=== PATIENT | male | born 1985 | race Two or more races ===

== ENCOUNTER 2017-04-07 21:11 | Emergency (ER) | payer OTHER ==
[~2017-04-07] VITALS: Ht 177.8 cm; Wt 81.6 kg
[2017-04-07 21:20] VITALS: BP 138/87
[2017-04-07] MEDS ORDERED: FLUORESCEIN SOD 1 MG TEST STRIP RIGHTEYE ONE (23:30)
[2017-04-07] MEDS ORDERED: GENTAMICIN SULF 0.3% OPTH(EYE) OINT 3.5GM RIGHTEYE ONE (23:30)
[2017-04-07] MEDS ORDERED: GENTAMICIN OPTH sol 0.3% 5ml RIGHTEYE ONE (23:30)
[2017-04-07] MEDS ORDERED: TETRACAINE HCL 0.5% OPTH(EYE) SOLN 4ML RIGHTEYE ONE (23:30)
== END 2017-04-08 | disposition home or self-care (01) ==
LOC: ER 21:28
DX: H10.9 Unspecified conjunctivitis (principal); H57.8 Other specified disorders of eye and adnexa

== ENCOUNTER 2021-02-24 15:58 | Inpatient (IN) | payer MEDICAID, OTHER ==
[~2021-02-24] VITALS: Ht 177.8 cm; Wt 94.3 kg
[2021-02-24 16:32] LABS: Basophils # (auto) 0 10 ^3/uL (0-0.2); Basophils % (auto) 0.5 % (0.0-2.0); Eosinophils # (auto) 0.4 10 ^3/uL (0-0.8); Hematocrit 42.3 % (41.0-53.0); Hemoglobin 14.5 g/dL (13.5-17.5); Lymphocytes # (auto) 1.6 10 ^3/uL (0.4-5.4); Lymphocytes % (auto) 22.5 % (10.0-50.0); Mean Corpuscular Hemoglobin 28.9 pg (28.0-32.0); Mean Corpuscular Hgb Conc. 34.3 g/dL (32.0-36.0); Mean Corpuscular Volume 84.4 fL (80.0-100.0); Monocytes # (auto) 0.5 10 ^3/uL (0-1.3); Monocytes % (auto) 7.6 % (0.0-12.0); Neutrophils # (auto) 4.6 10 ^3/uL (1.6-8.6); Neutrophils % (auto) 64.4 % (37.0-80.0); Red Blood Cells 5.01 10^6/uL (4.5-5.90); Red Cell Distribution Width 14.7 % (11.8-14.3); White Blood Cell 7.1 10^3/uL (4.4-10.8)
[2021-02-24 16:46] LABS: Albumin 3.6 g/dL (3.4-5.0); Calcium 8.4 mg/dL (8.5-10.1); Potassium 3.6 mmol/L (3.5-5.1)
[2021-02-24 16:48] LABS: Bilirubin, Total 0.4 mg/dL (0.2-1.0); Total Protein 6.7 g/dL (6.4-8.2)
[2021-02-24 17:14] LABS: INR 0.95 (0.9-1.15); Partial Thromboplastin Time 28.7 sec (23.0-31.2)
[2021-02-24] MEDS ORDERED: ONDANSETRON HCL 4 MG/2 ML VIAL IV ONE (20:15)
[2021-02-24] MEDS ORDERED: MORPHINE SULFATE 4 MG/ML SYR/VIAL IV ONE (20:15)
[2021-02-24] MEDS ORDERED: SODIUM CHLORIDE 0.9% 1,000 ML IV ONE (21:30)
[2021-02-24] MEDS: SOD CHL 0.45% 1,000 ML IV SCH ×2 (22:15→23:50)
[2021-02-24] MEDS ORDERED: ACETAMINOPHEN 325 MG TAB PO PRN (22:15)
[2021-02-24] MEDS ORDERED: ONDANSETRON HCL 4 MG/2 ML VIAL IV PRN (22:15)
[2021-02-24] MEDS ORDERED: MORPHINE SULF INJ 2 MG/ML SYRINGE 1ML IV PRN (22:15)
[2021-02-24] MEDS ORDERED: NITROGLYCERIN 0.4 MG SL TAB SL PRN (22:15)
[2021-02-24] MEDS: MORPHINE SULFATE 4 MG/ML SYR/VIAL IV PRN (23:34)
[2021-02-25 00:59] VITALS: BP 120/75
[2021-02-25 05:02] VITALS: BP 115/66
[2021-02-25 05:59] LABS: Basophils # (auto) 0 10 ^3/uL (0-0.2); Basophils % (auto) 0.3 % (0.0-2.0); Eosinophils # (auto) 0.4 10 ^3/uL (0-0.8); Eosinophils % (auto) 6.3 % (0.0-7.0); Hematocrit 40.5 % (41.0-53.0); Hemoglobin 13.9 g/dL (13.5-17.5); Lymphocytes # (auto) 1.9 10 ^3/uL (0.4-5.4); Lymphocytes % (auto) 29.8 % (10.0-50.0); Mean Corpuscular Hemoglobin 29.4 pg (28.0-32.0); Mean Corpuscular Hgb Conc. 34.3 g/dL (32.0-36.0); Mean Corpuscular Volume 85.8 fL (80.0-100.0); Monocytes # (auto) 0.5 10 ^3/uL (0-1.3); Monocytes % (auto) 7.6 % (0.0-12.0); Neutrophils # (auto) 3.6 10 ^3/uL (1.6-8.6); Red Blood Cells 4.72 10^6/uL (4.5-5.90); Red Cell Distribution Width 14.6 % (11.8-14.3); White Blood Cell 6.4 10^3/uL (4.4-10.8)
[2021-02-25 06:14] LABS: Albumin 2.9 g/dL (3.4-5.0); Calcium 7.9 mg/dL (8.5-10.1); Potassium 3.7 mmol/L (3.5-5.1)
[2021-02-25 06:17] LABS: Bilirubin, Total 0.5 mg/dL (0.2-1.0); Total Protein 6.1 g/dL (6.4-8.2)
[2021-02-25 09:00] VITALS: BP 115/54
[2021-02-25] MEDS: MORPHINE SULFATE 4 MG/ML SYR/VIAL IV PRN ×3 (09:55→22:32)
[2021-02-25] MEDS: FAMOTIDINE (10MG/ML) 2ML VL IV SCH ×2 (09:55→22:30)
[2021-02-25 13:00] VITALS: BP 124/75
[2021-02-25] MEDS ORDERED: GOLYTELY 4L KIT PO ONE (15:45)
[2021-02-25 16:45] VITALS: BP 120/77
[2021-02-25] MEDS: SOD CHL 0.45% 1,000 ML IV SCH (18:41)
[2021-02-25 22:00] VITALS: BP 99/74
[2021-02-26 05:00] VITALS: BP 120/71
[2021-02-26] MEDS ORDERED: GOLYTELY 4L KIT PO ONE (06:00)
[2021-02-26] MEDS ORDERED: MAGNESIUM CITRATE SOLUTION 300 ML BTL PO ONE (06:00)
[2021-02-26] MEDS: FAMOTIDINE (10MG/ML) 2ML VL IV SCH (08:47)
[2021-02-26] MEDS: MORPHINE SULFATE 4 MG/ML SYR/VIAL IV PRN (08:48)
[2021-02-26 09:00] VITALS: BP 106/78
[2021-02-26 13:00] VITALS: BP 102/52
[2021-02-26] MEDS ORDERED: PROPOFOL 10 MG/ML 20 ML IV ONE ×2 (13:23→13:29)
[2021-02-26] MEDS ORDERED: MORPHINE SULFATE 4 MG/ML SYR/VIAL IV PRN (14:00)
[2021-02-26 17:00] VITALS: BP 121/69
== END 2021-02-26 17:05 | disposition left against medical advice (07) | DRG 254 ==
LOC: ER 15:58 → TELE 22:10 → TELE-CENTR 23:37
PROVIDERS: ADMIT Nurse Practitioner Family; ATTEND Nurse Practitioner Family
PROC: 0DBP8ZX Excision of Rectum, Via Natural or Artificial Opening Endoscopic, Diagnostic (ICD-10-PCS; 2021-02-26)
PROC: 0DBN8ZX Excision of Sigmoid Colon, Via Natural or Artificial Opening Endoscopic, Diagnostic (ICD-10-PCS; principal; 2021-02-26 13:13)
DX: K63.5 Polyp of colon (principal); K92.2 Gastrointestinal hemorrhage, unspecified; F17.210 Nicotine dependence, cigarettes, uncomplicated; K64.8 Other hemorrhoids; G40.909 Epilepsy, unspecified, not intractable, without status epilepticus; Z82.49 Family history of ischemic heart disease and other diseases of the circulatory system; Z20.822 Contact with and (suspected) exposure to COVID-19; Z79.899 Other long term (current) drug therapy
CPT/HCPCS: 36415; 71045; 74176; 80053; 85025; 85610; 85730; 86850; 86900; 86901; 87426; 96361; 96374; G0378; J2704; J3490

== ENCOUNTER 2024-03-22 18:45 | Inpatient (IN) | payer MEDICAID, OTHER ==
[~2024-03-22] VITALS: Ht 177.8 cm; Wt 98.5 kg
[2024-03-22 19:56] LABS: Basophils # (auto) 0 10 ^3/uL (0-0.2); Basophils % (auto) 0.5 % (0.0-2.0); Eosinophils # (auto) 0.2 10 ^3/uL (0-0.8); Eosinophils % (auto) 3.4 % (0.0-7.0); Hemoglobin 14.8 g/dL (13.5-17.5); Lymphocytes # (auto) 2.1 10 ^3/uL (0.4-5.4); Lymphocytes % (auto) 30.1 % (10.0-50.0); Mean Corpuscular Hemoglobin 29.5 pg (28.0-32.0); Mean Corpuscular Hgb Conc. 34.5 g/dL (32.0-36.0); Mean Corpuscular Volume 85.5 fL (80.0-100.0); Monocytes # (auto) 0.6 10 ^3/uL (0-1.3); Monocytes % (auto) 8.4 % (0.0-12.0); Neutrophils % (auto) 57.6 % (37.0-80.0); Nucleated Red Blood Cells % 0.1 %; Platelet Count (auto) 213 10^3/uL (140-450); Red Blood Cells 5.03 10^6/uL (4.5-5.90); Red Cell Distribution Width 14.4 % (11.8-14.3)
[2024-03-22 20:16] LABS: Alanine Aminotransferase 37 U/L (7-40); Albumin 4.4 g/dL (3.2-4.8); Alkaline Phosphatase 100 U/L (46-116); Anion Gap 5 (5-15); Aspartate Aminotransferase 17 U/L (13-40); Bilirubin, Total 0.4 mg/dL (0.2-1.0); Blood Urea Nitrogen 17 mg/dL (9-23); Calcium 9.6 mg/dL (8.7-10.4); Carbon Dioxide 26 mmol/L (20-30); Chloride 108 mmol/L (98-107); Glucose 119 mg/dL (74-106); Sodium 139 mmol/L (136-145); Total Protein 6.8 g/dL (5.7-8.2)
[2024-03-22 20:19] LABS: Urine Bacteria None Seen /hpf (None Seen)
[2024-03-22 20:36] LABS: Urine Blood Negative /uL (Negative); Urine Clarity Clear (Clear); Urine Color Light-Yellow (Yellow); Urine Protein, UAD Negative (Negative); Urine Specific Gravity 1.017 (1.001-1.035); Urine Urobilinogen Normal (Negative); Urine WBC <1 /hpf (0 - 3); Urine pH 5.5 (5.0-9.0)
[2024-03-23 00:10] VITALS: PULSE 61; RESP 18
[2024-03-23] MEDS: HYDROcodone-ACET 10/325MG TAB PO ONE (00:11)
[2024-03-23] MEDS ORDERED: ONDANSETRON HCL 4 MG/2 ML VIAL IV PRN (12:30)
[2024-03-23] MEDS ORDERED: ACETAMINOPHEN 325 MG TAB PO PRN (12:30)
[2024-03-23] MEDS ORDERED: DOCUSATE SOD 100 MG CAP PO PRN (12:30)
[2024-03-23 13:06] LABS: Basophils # (auto) 0 10 ^3/uL (0-0.2); Basophils % (auto) 0.3 % (0.0-2.0); Eosinophils # (auto) 0.2 10 ^3/uL (0-0.8); Eosinophils % (auto) 2.9 % (0.0-7.0); Hematocrit 44.5 % (41.0-53.0); Hemoglobin 15.5 g/dL (13.5-17.5); Lymphocytes % (auto) 31.5 % (10.0-50.0); Mean Corpuscular Hemoglobin 29.6 pg (28.0-32.0); Mean Corpuscular Hgb Conc. 34.9 g/dL (32.0-36.0); Mean Corpuscular Volume 84.9 fL (80.0-100.0); Monocytes # (auto) 0.5 10 ^3/uL (0-1.3); Monocytes % (auto) 8.4 % (0.0-12.0); Neutrophils # (auto) 3.6 10 ^3/uL (1.6-8.6); Neutrophils % (auto) 56.9 % (37.0-80.0); Nucleated Red Blood Cells % 0.2 %; Platelet Count (auto) 206 10^3/uL (140-450); Red Blood Cells 5.25 10^6/uL (4.5-5.90); Red Cell Distribution Width 14.3 % (11.8-14.3); White Blood Cell 6.3 10^3/uL (4.4-10.8)
[2024-03-23 13:22] LABS: Alanine Aminotransferase 40 U/L (7-40); Albumin 4.5 g/dL (3.2-4.8); Alkaline Phosphatase 95 U/L (46-116); Anion Gap 6 (5-15); Aspartate Aminotransferase 20 U/L (13-40); BUN/Creatinine Ratio 10.8 (10.0-20.0); Blood Urea Nitrogen 12 mg/dL (9-23); Calcium 10.1 mg/dL (8.7-10.4); Carbon Dioxide 29 mmol/L (20-30); Chloride 106 mmol/L (98-107); Glucose 92 mg/dL (74-106); Potassium 4.3 mmol/L (3.5-5.1); Sodium 141 mmol/L (136-145)
[2024-03-23 13:23] LABS: Bilirubin, Total 0.5 mg/dL (0.2-1.0); Total Protein 7.1 g/dL (5.7-8.2)
[2024-03-23] MEDS: HYDROcodone-ACET 10/325MG TAB PO PRN (13:42)
[2024-03-23] MEDS: PANTOPRAZOLE 40 MG/10 ML VIAL INJ IV SCH (13:43)
[2024-03-23] MEDS: SODIUM CHLOR 0.9% PF (SALINE LOCK) 10ML VIAL/SYR IV SCH (14:02)
[2024-03-23] MEDS: LACTULOSE 20Gm/30ML SOLN PO ONE (16:07)
[2024-03-23] MEDS: POLYETHYLENE GLYCOL 17 GM PWDR PO ONE (16:13)
[2024-03-23] MEDS: METOCLOPRAMIDE HCL 5MG/ml INJ 2ml VIAL IV ONE (16:13)
[2024-03-23 17:00] VITALS: RESP 18
[2024-03-23 17:13] VITALS: BP 106/58; PULSE 52; RESP 16; TEMP 97.4; O2SAT 96
[2024-03-23 20:00] VITALS: PULSE 82
[2024-03-23 21:00] VITALS: BP 118/72; PULSE 57; RESP 18; TEMP 98.2; O2SAT 97
[2024-03-23] MEDS: METOCLOPRAMIDE HCL 5MG/ml INJ 2ml VIAL IV SCH (21:53)
[2024-03-23] MEDS: LACTULOSE 20Gm/30ML SOLN PO SCH (21:53)
[2024-03-23] MEDS: HYDROcodone-ACET 5/325MG TAB PO PRN (22:02)
[2024-03-24] VITALS (8 sets, daily range): BP systolic 101–129; BP diastolic 70–80; PULSE 54–84; RESP 16–20; TEMP 97.5–98.7; O2SAT 96–100
[2024-03-24 06:19] LABS: Basophils # (auto) 0 10 ^3/uL (0-0.2); Basophils % (auto) 0.2 % (0.0-2.0); Eosinophils # (auto) 0.2 10 ^3/uL (0-0.8); Eosinophils % (auto) 3.2 % (0.0-7.0); Hematocrit 43.5 % (41.0-53.0); Lymphocytes # (auto) 1.6 10 ^3/uL (0.4-5.4); Lymphocytes % (auto) 28.3 % (10.0-50.0); Mean Corpuscular Hemoglobin 29.2 pg (28.0-32.0); Mean Corpuscular Hgb Conc. 34.5 g/dL (32.0-36.0); Mean Corpuscular Volume 84.8 fL (80.0-100.0); Monocytes # (auto) 0.5 10 ^3/uL (0-1.3); Monocytes % (auto) 8.6 % (0.0-12.0); Neutrophils # (auto) 3.4 10 ^3/uL (1.6-8.6); Neutrophils % (auto) 59.7 % (37.0-80.0); Platelet Count (auto) 195 10^3/uL (140-450); Red Blood Cells 5.13 10^6/uL (4.5-5.90); Red Cell Distribution Width 14.2 % (11.8-14.3); White Blood Cell 5.7 10^3/uL (4.4-10.8)
[2024-03-24 06:39] LABS: Alanine Aminotransferase 40 U/L (7-40); Albumin 3.9 g/dL (3.2-4.8); Alkaline Phosphatase 84 U/L (46-116); Anion Gap 6 (5-15); Aspartate Aminotransferase 19 U/L (13-40); BUN/Creatinine Ratio 8.3 (10.0-20.0); Bilirubin, Total 0.6 mg/dL (0.2-1.0); Blood Urea Nitrogen 10 mg/dL (9-23); Calcium 9.5 mg/dL (8.7-10.4); Carbon Dioxide 27 mmol/L (20-30); Chloride 108 mmol/L (98-107); Glucose 89 mg/dL (74-106); Potassium 4.1 mmol/L (3.5-5.1); Sodium 141 mmol/L (136-145); Total Protein 6.2 g/dL (5.7-8.2)
[2024-03-24] MEDS: POLYETHYLENE GLYCOL 17 GM PWDR PO SCH (09:06)
[2024-03-24] MEDS: GOLYTELY 4L KIT PO ONE ×2 (18:44→22:38)
[2024-03-25] VITALS (7 sets, daily range): BP systolic 111–124; BP diastolic 57–80; PULSE 60–94; RESP 12–20; TEMP 97.5–98.9; O2SAT 95–99
[2024-03-25] MEDS: GOLYTELY 4L KIT PO ONE (06:26)
[2024-03-25] MEDS: MAGNESIUM CITRATE SOLUTION 300 ML BTL PO ONE (06:27)
[2024-03-25 06:55] LABS: Basophils # (auto) 0 10 ^3/uL (0-0.2); Basophils % (auto) 0.2 % (0.0-2.0); Eosinophils # (auto) 0.2 10 ^3/uL (0-0.8); Eosinophils % (auto) 2.7 % (0.0-7.0); Hematocrit 41.3 % (41.0-53.0); Hemoglobin 14.1 g/dL (13.5-17.5); Lymphocytes # (auto) 1.8 10 ^3/uL (0.4-5.4); Lymphocytes % (auto) 25.3 % (10.0-50.0); Mean Corpuscular Hemoglobin 29.1 pg (28.0-32.0); Mean Corpuscular Hgb Conc. 34.1 g/dL (32.0-36.0); Mean Corpuscular Volume 85.3 fL (80.0-100.0); Monocytes # (auto) 0.6 10 ^3/uL (0-1.3); Monocytes % (auto) 8.1 % (0.0-12.0); Neutrophils # (auto) 4.5 10 ^3/uL (1.6-8.6); Neutrophils % (auto) 63.7 % (37.0-80.0); Platelet Count (auto) 191 10^3/uL (140-450); Red Blood Cells 4.84 10^6/uL (4.5-5.90); Red Cell Distribution Width 14.5 % (11.8-14.3)
[2024-03-25 07:41] LABS: Alanine Aminotransferase 32 U/L (7-40); Alkaline Phosphatase 79 U/L (46-116); Anion Gap 5 (5-15); Carbon Dioxide 31 mmol/L (20-30); Chloride 107 mmol/L (98-107); Glucose 84 mg/dL (74-106); Potassium 3.7 mmol/L (3.5-5.1); Sodium 143 mmol/L (136-145)
[2024-03-25 07:42] LABS: Albumin 3.8 g/dL (3.2-4.8); BUN/Creatinine Ratio 6.3 (10.0-20.0); Blood Urea Nitrogen 7 mg/dL (9-23)
[2024-03-25 07:43] LABS: Aspartate Aminotransferase 15 U/L (13-40)
[2024-03-25 07:44] LABS: Bilirubin, Total 0.7 mg/dL (0.2-1.0); Total Protein 5.9 g/dL (5.7-8.2)
[2024-03-25] MEDS ORDERED: fentaNYL CITRATE 100 MCG/2 ML VL ONE (13:54)
[2024-03-25] MEDS ORDERED: MIDAZOLAM HCL 2MG/2ML 2ml VIAL (1mg/ml) ONE (13:55)
[2024-03-25] MEDS: HYDROCORTISONE ACET 25 MG RECTAL SUPP PR ONE (14:15)
[2024-03-25] MEDS ORDERED: ONDANSETRON HCL 4 MG/2 ML VIAL ONE (14:38)
[2024-03-25] MEDS ORDERED: PROPOFOL 10 MG/ML 20 ML IV ONE (14:38)
[2024-03-26 01:00] VITALS: BP 119/77; PULSE 63; RESP 15; TEMP 98; O2SAT 97
[2024-03-26 05:00] VITALS: BP 118/77; PULSE 85; RESP 19; TEMP 97.8; O2SAT 98
[2024-03-26 06:06] LABS: Basophils # (auto) 0 10 ^3/uL (0-0.2); Basophils % (auto) 0.3 % (0.0-2.0); Eosinophils # (auto) 0.2 10 ^3/uL (0-0.8); Eosinophils % (auto) 2.8 % (0.0-7.0); Hematocrit 41.3 % (41.0-53.0); Hemoglobin 14.5 g/dL (13.5-17.5); Lymphocytes # (auto) 1.4 10 ^3/uL (0.4-5.4); Lymphocytes % (auto) 23.1 % (10.0-50.0); Mean Corpuscular Hemoglobin 29.8 pg (28.0-32.0); Mean Corpuscular Volume 85.2 fL (80.0-100.0); Monocytes # (auto) 0.4 10 ^3/uL (0-1.3); Monocytes % (auto) 6.9 % (0.0-12.0); Neutrophils # (auto) 4.1 10 ^3/uL (1.6-8.6); Neutrophils % (auto) 66.9 % (37.0-80.0); Platelet Count (auto) 193 10^3/uL (140-450); Red Blood Cells 4.85 10^6/uL (4.5-5.90); Red Cell Distribution Width 14.3 % (11.8-14.3); White Blood Cell 6.1 10^3/uL (4.4-10.8)
[2024-03-26 06:28] LABS: Alanine Aminotransferase 31 U/L (7-40); Albumin 4.1 g/dL (3.2-4.8); Alkaline Phosphatase 82 U/L (46-116); Anion Gap 6 (5-15); Aspartate Aminotransferase 16 U/L (13-40); BUN/Creatinine Ratio 9.5 (10.0-20.0); Blood Urea Nitrogen 11 mg/dL (9-23); Calcium 9.1 mg/dL (8.7-10.4); Carbon Dioxide 29 mmol/L (20-30); Chloride 106 mmol/L (98-107); Glucose 93 mg/dL (74-106); Potassium 3.9 mmol/L (3.5-5.1); Sodium 141 mmol/L (136-145)
[2024-03-26 06:29] LABS: Bilirubin, Total 0.6 mg/dL (0.2-1.0); Total Protein 6.4 g/dL (5.7-8.2)
[2024-03-26] MEDS: PANTOPRAZOLE 40 MG TAB PO ONE (06:48)
[2024-03-26 07:58] VITALS: BP 108/60; PULSE 63; RESP 16; TEMP 98.4; O2SAT 97
[2024-03-26] MEDS: HYDROCORTISONE ACET 25 MG RECTAL SUPP PR ONE (11:30)
[2024-03-26 11:56] VITALS: BP 118/76; PULSE 64; RESP 16; TEMP 97.9; O2SAT 96
[2024-03-26] MEDS ORDERED: DOCU-265 PO (13:12)
[2024-03-26] MEDS ORDERED: PANT40T PO (13:12)
[2024-03-26] MEDS ORDERED: ACET-1882 PO (13:12)
[2024-03-27] MEDS ORDERED: PANTOPRAZOLE 40 MG TAB PO SCH (06:00)
== END 2024-03-26 13:10 | disposition home or self-care (01) | DRG 254 ==
LOC: ER 18:45 → OVERFLOW 03-23 12:36 → EAST 03-23 16:55
PROVIDERS: ADMIT Internal Medicine Pulmonary Disease; ATTEND Internal Medicine Gastroenterology
PROC: 0DBP8ZX Excision of Rectum, Via Natural or Artificial Opening Endoscopic, Diagnostic (ICD-10-PCS; principal; 2024-03-25 13:49)
DX: K64.8 Other hemorrhoids (principal); E66.9 Obesity, unspecified; F17.210 Nicotine dependence, cigarettes, uncomplicated; K21.9 Gastro-esophageal reflux disease without esophagitis; K63.5 Polyp of colon; K59.00 Constipation, unspecified; I10 Essential (primary) hypertension; M51.36 Other intervertebral disc degeneration, lumbar region; K62.1 Rectal polyp; Z82.49 Family history of ischemic heart disease and other diseases of the circulatory system; Z87.19 Personal history of other diseases of the digestive system; Z68.31 Body mass index [BMI] 31.0-31.9, adult
CPT/HCPCS: 36415; 74018; 74176; 80053; 81001; 85025; G0378; J2250; J2405; J2470; J2704

== ENCOUNTER 2024-12-01 09:45 | Emergency (ER) | payer OTHER ==
[~2024-12-01] VITALS: Ht 177.8 cm; Wt 100.8 kg
[~2024-12-01 09:45] MED LIST: ACET-1882 PO; DOCU-265 PO; PANT40T PO
--- NOTE | 2024-12-01 10:02 | ECG ---
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
--- NOTE | 2024-12-01 10:24 | ED.PDOC ---
SOB-HPI HPI Comments 39-year-old male with a history of cervical disc disease and GI bleeding brought in by self complaining of shortness of breath, associated with multiple other complaints including brain fog, lightheadedness, intermittent abdominal pain, bloody stools, and fatigue. Patient reports undergoing multiple procedures for cervical spine pain for the past 7 months during which he states he has been put under anesthesia. He denies any vomiting, diarrhea, fever, cough, vision changes or focal weakness. He does admit to headache, intermittent abdominal pain for the last several months, associated with intermittent diarrhea and intermittent rectal bleeding. States he has been evaluated here for rectal bleeding in the past, underwent polypectomy, and has not had bleeding within the last several days. Does report right lower quadrant abdominal pain. Chief Complaint: Shortness of Breath Time Seen by MD: 10:00 Primary Care Provider: NONE Reviewed notes: Nurses Notes, Medications, Allergies Information Source: Patient Mode of Arrival: Ambulatory Severity: Moderate Past Medical History Past Medical History (Other): Cervical Disc Disease - on epidural spine injections previous GI bleed w/ polyp removal Surgical History (Other): ankle surgery Family History Family History: No family hx of Cancer, No family hx of DM, No family hx of Heart radha Social History Smoker: Cigarettes Alcohol: Denies ETOH Use Drugs: Denies Drug Use Lives In: Home All Other Systems: Reviewed and Negative (Comprehensive systems review obtained and negative except for what is stated in the HPI.) Physical Exam General Appearance: No Apparent Distress HEENT: Other (Pupils and face symmetric. Moist mucous membranes.) Neck: Full Range of Motion, Normal Inspection Respiratory: Lungs Clear, No Accessory Muscle Use, No Respiratory Distress, Normal Breath Sounds Cardiovascular: No Edema, No JVD, Regular Rate/Rhythm Breast Exam: Deferred Gastrointestinal: RLQ, Soft, Tenderness Genitalia: Deferred Pelvic: Deferred Rectal: Deferred Extremities: Normal inspection, Normal range of motion, Non-tender, No pedal edema Neurologic: Alert (Oriented x4), Normal Affect, Normal Mood, Other (Ambulatory without difficulty) Cerebellar Function: NOT DONE Reflexes: NOT DONE Skin: Dry, Normal Color, Warm Lymphatic: NOT DONE EKG EKG : Comments Sinus rhythm, rate 61, normal intervals, normal axis, possible old inferior infarct, incomplete right bundle-branch block, nonspecific T change Was a procedure done? Was a procedure done?: No Differential Dx Differential Diagnosis: Anxiety, Asthma, Bronchitis, CHF, COPD, Dysrhythmia, Hyponatremia, Myocardial infarction, Panic Attack, Pneumonia, Pulmonary Embolism, Sinusitis, URI, Other (Electrolyte imbalance, side effect of anesthesia, anemia, among others) X-Ray, Labs, Meds, VS Vital Signs Date Time Temp Pulse Resp B/P (MAP) Pulse Ox O2 Delivery O2 Flow Rate FiO2 12/01/24 12:19 12/01/24 12:07 97.9 70 18 145/72 (96) 70 97.9 12/01/24 11:18 61 12/01/24 10:05 16 96 Room Air* 0 21 12/01/24 10:01 61 12/01/24 10:00 97.8 66 16 128/85 (99) 96 97.8 Lab Test 12/01/24 11:01 12/01/24 10:55 12/01/24 10:04 Range/Units Urine Color Light-yellow Yellow Urine Clarity Clear Clear Urine pH 6.5 5.0-9.0 Urine Specific [place] 1.018 1.001-1.035 Urine Protein Negative Negative Urine Ketones Negative Negative Urine Blood Negative Negative /uL Urine Nitrite Negative Negative Urine Bilirubin Negative Negative Urine Urobilinogen Normal Negative mg/dL Urine Leukocyte Esterase Negative Negative /uL Urine RBC <1 0 - 3 /hpf Urine Microscopic WBC < 1 0-3 /HPF Urine Squamous Epithelial Cells None seen <5 /hpf Urine Bacteria None seen None Seen /hpf Urine Glucose Normal Normal mg/dL Urine Opiates Screen Neg NEGATIVE Urine Fentanyl Screen Neg NEGATIVE Urine Barbiturates Screen Neg NEGATIVE Urine Phencyclidine Screen Neg NEGATIVE Urine Amphetamines Screen Neg NEGATIVE Urine Benzodiazepines Screen Neg NEGATIVE Urine Cocaine Screen Neg NEGATIVE Urine Cannabinoids Screen Neg NEGATIVE Troponin I High Sensitivity 4 4 </=54 ng/L White Blood Count 5.6 4.4-10.8 10^3/uL Red Blood Count 5.28 4.5-5.90 10^6/uL Hemoglobin 14.7 13.5-17.5 g/dL Hematocrit 43.6 41.0-53.0 % Mean Corpuscular Volume 82.6 80.0-100.0 fL Mean Corpuscular Hemoglobin 27.9 L 28.0-32.0 pg Mean Corpuscular Hemoglobin Concent 33.7 32.0-36.0 g/dL Red Cell Distribution Width 14.5 H 11.8-14.3 % Platelet Count 234 140-450 10^3/uL Mean Platelet Volume 9.2 6.9-10.8 fL Neutrophils (%) (Auto) 60.9 37.0-80.0 % Lymphocytes (%) (Auto) 28.0 10.0-50.0 % Monocytes (%) (Auto) 7.5 0.0-12.0 % Eosinophils (%) (Auto) 3.2 0.0-7.0 % Basophils (%) (Auto) 0.4 0.0-2.0 % Neutrophils # (Auto) 3.4 1.6-8.6 10 ^3/uL Lymphocytes # (Auto) 1.6 0.4-5.4 10 ^3/uL Monocytes # (Auto) 0.4 0-1.3 10 ^3/uL Eosinophils # (Auto) 0.2 0-0.8 10 ^3/uL Basophils # (Auto) 0 0-0.2 10 ^3/uL Nucleated Red Blood Cells 0.1 % D-Dimer, Quantitative < 0.19 0.0-0.49 mg/L FEU Sodium Level 140 136-145 mmol/L Potassium Level 3.9 3.5-5.1 mmol/L Chloride Level 104 98-107 mmol/L Carbon Dioxide Level 29 20-31 mmol/L Anion Gap 7 5-15 Blood Urea Nitrogen 15 9-23 mg/dL Creatinine 1.05 0.700-1.30 mg/dL Glomerular Filtration Rate Calc 91 >90 mL/min BUN/Creatinine Ratio 14.3 10.0-20.0 Serum Glucose 94 74-106 mg/dL Calcium Level 9.7 8.7-10.4 mg/dL Total Bilirubin 0.5 0.2-1.0 mg/dL Aspartate Amino Transferase (AST) 22 13-40 U/L Alanine Aminotransferase (ALT) 41 H 7-40 U/L Alkaline Phosphatase 91 46-116 U/L B-Type Natriuretic Peptide 25.55 0-100 pg/mL Total Protein 6.9 5.7-8.2 g/dL Albumin 4.5 3.2-4.8 g/dL [facility] [id number] [place] [id number] Ph: [phone] DIAGNOSTIC IMAGING Diagnostic Imaging Report : [id number] Signed PATIENT: NII PRETTY ACCT: [id number] UNIT: [id number] : 1985 LOC: ER ROOM / BED: / AGE / SEX: 39 / M ADM STATUS: REG ER SERVICE 1033 ORDERING PHYSICIAN: CATALINO FRANKEL MD PROCEDURE(s): CXRP - CHEST PORTABLE REASON: sob ORDER NUMBER(s): [id number], ACCESSION NUMBER(s): [id number] EXAM: XY CHEST PORTABLE Indication: sob Technique: Single frontal view of the chest was obtained Comparison: CHEST PORTABLE on DOS: 02/26/21 FINDINGS: Lines and Tubes: None Lungs: No focal consolidation. Pleura: No effusion. No pneumothorax. Cardiomediastinal contours: Unremarkable Bones: No acute osseous abnormality. IMPRESSION: No acute cardiopulmonary disease. ATED BY: JERO GEORGES MD DICTATED DATE/TIME: 12/01/24 105 SIGNED BY: JERO GEORGES MD SIGNED DATE/TIME: 12/01/24 105 CC: [place] [id number] Ph: [phone] DIAGNOSTIC IMAGING Diagnostic Imaging Report : [id number] Signed PATIENT: NII PRETTY ACCT: [id number] UNIT: [id number] : 1985 LOC: ER ROOM / BED: / AGE / SEX: 39 / M ADM STATUS: REG ER SERVICE 1034 ORDERING PHYSICIAN: CATALINO FRANKEL MD PROCEDURE(s): ABPL - CT AB PEL WO CON-NO ORAL OR IV REASON: abd pain, blood in stool, diarrhea ORDER NUMBER(s): [id number], ACCESSION NUMBER(s): [id number] CT ABDOMEN AND PELVIS WITHOUT CONTRAST CLINICAL HISTORY: abd pain, blood in stool, diarrhea TECHNIQUE: Multiple contiguous axial images of the abdomen and pelvis without intravenous contrast. The images were reformatted degenerate coronal and sag ittal reconstructions. All CT scans at this medical facility are performed using dose modulation techniques as appropriate to a performed exam including the following:Automated exposure control was utilized; adjustment of the MA and/or KV according to pat ient size; and use of iterative reconstruction technique. Radiation Dose Information: CT Dose: CTDI volume is 19 mGy. Dose-length product is 1307 mGy*cm Comparison: CT CT AB PEL WO CON-NO ORAL OR IV on DOS: 03/22/24, CT ABD PELVIS WO CONTRAST on DOS: 02/24/21 FINDINGS: Evaluation of the abdomen and pelvis is limited without intravenous contrast. The liver, gallbladder, pancreas, kidneys, adrenal glands, and spleen appear within normal limits. There is no gross evidence of abdominal lymphadenopathy. There is no free fluid or free air. The stomach grossly appears unremarkable. The small and large bowel loops demonstrate normal caliber and distribution. A normal appearing appendix is seen in the right lower quadrant abdomen. There are scattered diverticula in the distal colon without evidence of acute diverticulitis. The abdominal aorta and IVC appear within normal limits. The bladder appears unremarkable for the degree of distention. Pelvic organ appears within normal limits. There is no gross evidence of a pelvic mass. There is no free fluid collection. Lung bases are clear. There is no acute osseous abnormality. IMPRESSION: 1. There is no acute process in the abdomen and pelvis. 2. Scattered diverticula in the distal colon without evidence of acute diverticulitis. HS:Y ATED BY: MATTHEW FAJARDO MD DICTATED DATE/TIME: 12/01/24 112 SIGNED BY: MATTHEW FAJARDO MD SIGNED DATE/TIME: 12/01/24 112 CC: X-Ray, Labs, Meds, VS Comment 39-year-old male with a history of cervical spine disease and previous GI bleeding complaining of shortness of breath associated with multiple other complaints Vitals normal Exam unremarkable Rhythm strip independently interpreted by me: Rhythm, rate 61, no ectopy. Chest x-ray remarkable CT abdomen and pelvis IMPRESSION: 1. There is no acute process in the abdomen and pelvis. 2. Scattered diverticula in the distal colon without evidence of acute div erticulitis. CBC, CMP, BNP, troponin, D-dimer, UA, urine drug screen all unremarkable for any abnormality of acute significance Patient treated with the following in the ED: 1 L 0.9 normal saline IV bolus, Toradol 30 mg IV for back pain, Pepcid 20 mg IV On re-evaluation, exam is unchanged, patient states he feels better. Workup is unremarkable. Perhaps patient's symptoms are due to side effects of anesthesia. Patient appears stable for discharge with close outpatient follow-up with his primary physician. Patient requested a prescription for an inhaler, as he states the shortness of breath is possibly due to asthma like symptoms. He states he was a heavy marijuana smoker in the past. I will prescribe albuterol and Protonix. Time of 1ST Reevaluation: 10:30 Reevaluation 1ST: Unchanged Patient Education/Counseling: Diagnosis, Treatment, Need For Follow Up Family Education/Counseling: No Family Present Departure 1 Departure Time of Disposition: 12:17 Impression: Primary Impression: Shortness of breath Additional Impression: Medication side effects Disposition: HOME / SELF CARE / HOMELESS Condition: Stable Additional Instructions: Your blood and urine tests, including screening tests for heart attack, heart failure and blood clots in your lungs, were essentially normal. Your chest x- ray was normal. Your CT scan did not show any acute finding. You do have diverticular disease, which may be the cause of the blood in your stool. This does not require any acute treatment at this time. I have prescribed an acid housekeeping/laundry that may help with the bleeding. Your other symptoms may be due to side effects of the anesthesia. There is no way to test for this. Follow-up with your primary doctor in 1-2 days. e-Prescriptions Albuterol Sulfate (Albuterol Sulfate Hfa) 108 Mcg/Act Aer 1 PUFF IN Q6HP PRN, #1 AER Prov: CATALINO FRANKEL MD 12/01/24 Pantoprazole Sodium Sesquihydr (Pantoprazole Sodium) 40 Mg Tab 40 MG PO DAILY@0600 for 30 Days, #30 TAB Prov: CATALINO FRANKEL MD 12/01/24 Discharged With: Self Critical Care Note Critical Care Time?: No Stability Stability form required: No Heart Score Heart Score: Heart Score Response (Comments) Value History Slightly Suspicious 0 EKG Repolarization Disturb 1 Age <45 0 Risk Factors No known risk factors 0 Troponin Normal limit 0 Total 1 I personally scribed for CATALINO FRANKEL MD ([email or web address]) on 12/01/24 at 10:24. Electronically submitted by Nick Hough ([email or web address]). I personally scribed for CATALINO FRANKEL MD ([email or web address]) on 12/01/24 at 11:18. Electronically submitted by Nick Hough ([email or web address]). I personally scribed for CATALINO FRANKEL MD ([email or web address]) on 12/01/24 at 11:46. Electronically submitted by Nick Hough ([email or web address]). CATALINO FRANKEL MD December 01, 2024 10:24
--- NOTE | 2024-12-01 11:02 | DVH ---
EXAM: XY CHEST PORTABLE Indication: sob Technique: Single frontal view of the chest was obtained Comparison: CHEST PORTABLE on DOS: 02/26/21 FINDINGS: Lines and Tubes: None Lungs: No focal consolidation. Pleura: No effusion. No pneumothorax. Cardiomediastinal contours: Unremarkable Bones: No acute osseous abnormality. IMPRESSION: No acute cardiopulmonary disease.
[2024-12-01 11:03] LABS: Urine Bacteria None Seen /hpf (None Seen)
[2024-12-01 11:07] LABS: Basophils # (auto) 0 10 ^3/uL (0-0.2); Basophils % (auto) 0.4 % (0.0-2.0); Eosinophils # (auto) 0.2 10 ^3/uL (0-0.8); Eosinophils % (auto) 3.2 % (0.0-7.0); Hematocrit 43.6 % (41.0-53.0); Hemoglobin 14.7 g/dL (13.5-17.5); Lymphocytes # (auto) 1.6 10 ^3/uL (0.4-5.4); Mean Corpuscular Hemoglobin 27.9 pg (28.0-32.0); Mean Corpuscular Hgb Conc. 33.7 g/dL (32.0-36.0); Mean Corpuscular Volume 82.6 fL (80.0-100.0); Monocytes # (auto) 0.4 10 ^3/uL (0-1.3); Monocytes % (auto) 7.5 % (0.0-12.0); Neutrophils # (auto) 3.4 10 ^3/uL (1.6-8.6); Neutrophils % (auto) 60.9 % (37.0-80.0); Nucleated Red Blood Cells % 0.1 %; Platelet Count (auto) 234 10^3/uL (140-450); Red Blood Cells 5.28 10^6/uL (4.5-5.90); Red Cell Distribution Width 14.5 % (11.8-14.3); White Blood Cell 5.6 10^3/uL (4.4-10.8)
[2024-12-01 11:09] LABS: Albumin 4.5 g/dL (3.2-4.8); Alkaline Phosphatase 91 U/L (46-116); Anion Gap 7 (5-15); Aspartate Aminotransferase 22 U/L (13-40); BUN/Creatinine Ratio 14.3 (10.0-20.0); Blood Urea Nitrogen 15 mg/dL (9-23); Calcium 9.7 mg/dL (8.7-10.4); Carbon Dioxide 29 mmol/L (20-31); Chloride 104 mmol/L (98-107); Glucose 94 mg/dL (74-106); Potassium 3.9 mmol/L (3.5-5.1); Sodium 140 mmol/L (136-145); Total Protein 6.9 g/dL (5.7-8.2)
[2024-12-01 11:10] LABS: Bilirubin, Total 0.5 mg/dL (0.2-1.0)
[2024-12-01 11:14] LABS: Alanine Aminotransferase 41 U/L (7-40)
--- NOTE | 2024-12-01 11:26 | DVH ---
CT ABDOMEN AND PELVIS WITHOUT CONTRAST CLINICAL HISTORY: abd pain, blood in stool, diarrhea TECHNIQUE: Multiple contiguous axial images of the abdomen and pelvis without intravenous contrast. T he images were reformatted degenerate coronal and sagittal reconstructions. All CT scans at this medical facility are performed using dose modulation techniques as appropriate t o a performed exam including the following:Automated exposure control was utilized; adjustment of the MA and/or KV according to patient size; and use of iterative reconstruction technique. Radiation Dose Information: CT Dose: CTDI volume is 19 mGy. Dose-length product is 1307 mGy*cm Comparison: CT CT AB PEL WO CON-NO ORAL OR IV on DOS: 03/22/24, CT ABD PELVIS WO CONTRAST on DOS: 02/24 FINDINGS: Evaluation of the abdomen and pelvis is limited without intravenous contrast. The liver, gallbladder, pancreas, kidneys, adrenal glands, and spleen appear within normal limits. There is no gross evidence of abdominal lymphadenopathy. There is no free fluid or free air. The stomach grossly appears unremarkable. The small and large bowel loops demonstrate normal caliber and distribution. A normal appearing appendix is seen in the right lower quadrant abdomen. There are scattered diverticula in the distal colon without evidence of acute diverticulitis. The abdominal aorta and IVC appear within normal limits. The bladder appears unremarkable for the degree of distention. Pelvic organ appears within normal [place] its. There is no gross evidence of a pelvic mass. There is no free fluid collection. Lung bases are clear. There is no acute osseous abnormality. IMPRESSION: 1. There is no acute process in the abdomen and pelvis. 2. Scattered diverticula in the distal colon without evidence of acute diverticulitis. HS:Y
[2024-12-01 11:28] LABS: Urine Blood Negative /uL (Negative); Urine Clarity Clear (Clear); Urine Color Light-Yellow (Yellow); Urine Protein, UAD Negative (Negative); Urine Specific Gravity 1.018 (1.001-1.035); Urine Squamous Epithelial Cell None Seen /hpf (<5); Urine Urobilinogen Normal (Negative); Urine WBC < 1 /HPF (0-3); Urine pH 6.5 (5.0-9.0)
[2024-12-01 11:43] LABS: Amphetamine Screen, Urine Neg (NEGATIVE); Barbiturate Scree,Urine Neg (NEGATIVE); Benzodiazephine Screen, Urine Neg (NEGATIVE); Cannabinoid Screen, Urine Neg (NEGATIVE); Cocaine Screen, Urine Neg (NEGATIVE); Opiate Scree,Urine Neg (NEGATIVE); Phencyclidine Screen, Urine Neg (NEGATIVE)
[2024-12-01 12:07] VITALS: BP 145/72; RESP 18; TEMP 97.9; O2SAT 70
[2024-12-01] MEDS: SODIUM CHLORIDE 0.9% 1,000 ML IV ONE (12:15)
[2024-12-01] MEDS ORDERED: PANT40T PO (12:19)
[2024-12-01] MEDS ORDERED: ALBU108A5 IN (13:04)
[2024-12-01] MEDS: FAMOTIDINE (10MG/ML) 2ML VL IV ONE (13:26)
[2024-12-01] MEDS: KETOROLAC TROMETH 30 MG/ML 1ML VIAL IV ONE (13:27)
== END 2024-12-01 13:50 | disposition home or self-care (01) ==
LOC: ER 09:45
DX: R06.02 Shortness of breath (principal); T50.905A Adverse effect of unspecified drugs, medicaments and biological substances, initial encounter; F17.210 Nicotine dependence, cigarettes, uncomplicated; Z98.890 Other specified postprocedural states; Y92.89 Other specified places as the place of occurrence of the external cause
CPT/HCPCS: 36415; 71045; 74176; 80053; 80307; 81001; 83880; 84484; 85025; 85379; 93005; 96361; 96374; 96375; 99285; J1885; J3490; J7030

== ENCOUNTER 2025-01-17 05:20 | Inpatient (IN) | payer OTHER ==
[~2025-01-17] VITALS: Ht 185.4 cm; Wt 106.0 kg
[~2025-01-17 05:20] MED LIST changes: +ALBU108A5 IN
--- NOTE | 2025-01-17 05:36 | PRN ---
Misceleneous Note Note Note RAPID MEDICAL ASSESSMENT NOTE: 39-year-old male presents via EMS with syncopal episode and back pain. Physical exam: General: Awake, alert and oriented. No acute distress. Skin: Skin in warm, dry and intact without rashes or lesions. HEENT: The head is normocephalic and atraumatic. Conjunctivae are clear without exudates or hemorrhage. Sclera is non-icteric. Respiratory: No signs of respiratory distress. No Stridor. Neurological: The patient is awake, alert and oriented to person, place, and time with normal speech. Speech is clear. There is no facial asymmetry. Plan: Sign out to oncoming provider pending full evaluation and re-assessment. EVELIN RIZZO MD Jan 17, 2025 05:36
[2025-01-17] MEDS: SODIUM CHLORIDE 0.9% 1,000 ML IV ONE (05:45)
--- NOTE | 2025-01-17 05:53 | ECG ---
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
[2025-01-17 05:59] LABS: Basophils # (auto) 0 10 ^3/uL (0-0.2); Basophils % (auto) 0.2 % (0.0-2.0); Eosinophils # (auto) 0.1 10 ^3/uL (0-0.8); Eosinophils % (auto) 1.1 % (0.0-7.0); Hematocrit 45.7 % (41.0-53.0); Hemoglobin 15.3 g/dL (13.5-17.5); Mean Corpuscular Hgb Conc. 33.6 g/dL (32.0-36.0); Mean Corpuscular Volume 83.2 fL (80.0-100.0); Monocytes # (auto) 0.9 10 ^3/uL (0-1.3); Monocytes % (auto) 8.3 % (0.0-12.0); Neutrophils # (auto) 6.4 10 ^3/uL (1.6-8.6); Neutrophils % (auto) 61.4 % (37.0-80.0); Nucleated Red Blood Cells % 0.1 %; Platelet Count (auto) 223 10^3/uL (140-450); Red Blood Cells 5.49 10^6/uL (4.5-5.90); Red Cell Distribution Width 15.2 % (11.8-14.3); White Blood Cell 10.5 10^3/uL (4.4-10.8)
[2025-01-17 06:00] VITALS: PULSE 74; RESP 16; O2SAT 95
--- NOTE | 2025-01-17 06:15 | DVH ---
CHEST RADIOGRAPH Indication: Syncope Technique: Single frontal view of the chest was obtained COMPARISON: XY CHEST PORTABLE on DOS: 12/01/24, CHEST PORTABLE on DOS: 02/26/21 FINDINGS: Lines and Tubes: None Lungs: Clear Pleura: No effusion. No pneumothorax. Cardiomediastinal contours: Unremarkable Bones: Unremarkable IMPRESSION: 1. No acute disease.
[2025-01-17 06:19] LABS: Albumin 4.5 g/dL (3.2-4.8); Alkaline Phosphatase 93 U/L (46-116); Anion Gap 12 (5-15); Aspartate Aminotransferase 20 U/L (<34); BUN/Creatinine Ratio 13.8 (10.0-20.0); Blood Urea Nitrogen 19 mg/dL (9-23); Calcium 9.1 mg/dL (8.7-10.4); Carbon Dioxide 26 mmol/L (20-31); Chloride 105 mmol/L (98-107); Potassium 4.5 mmol/L (3.5-5.1); Sodium 143 mmol/L (136-145); Total Protein 6.7 g/dL (5.7-8.2)
[2025-01-17 06:20] LABS: Bilirubin, Total 0.4 mg/dL (0.2-1.0)
--- NOTE | 2025-01-17 06:20 | ED.PDOC ---
HPI (NEURO) HPI Comments 39 year old male presents to the ED via EMS with a chief complaint of syncope onset today (01/17/25). Patient states he had a back stimulator procedure at [place], [place], was discharged home. This morning, patient woke up, went to the bathroom, was found on the floor, unresponsive. Upon EMS arrival, patient experiencing 2 witnessed syncope episodes, witnessed, had positive ortho stats. Denies chest pain, shortness of breath, nausea, vomiting, diarrhea. No other symptoms or modifying factors present at this time. Chief Complaint: Syncope Time Seen by MD: 06:10 Primary Care Provider: NONE Reviewed Notes: Medications, Allergies Information Source: Patient, Emergency Med Personnel Mode of Arrival: EMS Severity: Moderate Timing: Hours Duration: Since onset Prehospital treatment: None Onset: At rest Circumstances: Spontaneous Symptoms: Syncope Before: Normal Modifying factors: Nothing Past Medical History PAST MEDICAL HISTORY: Denies Surgical History (Other): back stimulator procedure Family History Family History: No family hx of Cancer, No family hx of DM, No family hx of Heart radha Social History Smoker: Cigarettes Alcohol: Denies ETOH Use Drugs: Denies Drug Use Lives In: Home Constitutional: denies: chills, diaphoresis, fatigue, fever, malaise, sweats, weakness, others EENTM: denies: blurred vision, double vision, ear bleeding, ear discharge, ear drainage, ear pain, ear ringing, eye pain, eye redness, hearing loss, mouth pain, mouth swelling, nasal discharge, nose bleeding, nose congestion, nose pain, photophobia, tearing, throat pain, throat swelling, voice changes, others Respiratory: denies: cough, hemoptysis, orthopnea, SOB at rest, shortness of breath, SOB with excertion, stridor, wheezing, others Cardiovascular: denies: chest pain, dizzy spells, diaphoresis, Dyspnea on exertion, edema, irregular heart beat, left arm pain, lightheadedness, palpitations, PND, syncope, others Gastrointestinal: denies: abdomen distended, abdominal pain, blood streaked bowels, constipated, diarrhea, dysphagia, difficulty swallowing, hematemesis, melena, nausea, poor appetite, poor fluid intake, rectal bleeding, rectal pain, vomiting, others Genitourinary: denies: burning, dysuria, flank pain, frequency, hematuria, incontinence, penile discharge, penile sore, pain, testicle pain, testicle swelling, urgency, others Neurological: reports: others (syncope); denies: dizziness, fainting, headache, left sided numbness, left sided weakness, numbness, paresthesia, pre-existing deficit, right sided numbness, right sided weakness, seizure, speech problems, tingling, tremors, weakness Musculoskeletal: reports: back pain; denies: gout, joint pain, joint swelling, muscle pain, muscle stiffness, neck pain, others Integumetry: denies: bruises, change in color, change in hair/nails, dryness, laceration, lesions, lumps, rash, wounds, others Allergic/Immunocompromised: denies: Difficulty Healing, Frequent Infections, Hives, Itching, others Hematologic/Lymphatic: denies: anemia, blood clots, easy bleeding, easy bruising, swollen glands, others Endocrine: denies: excessive hunger, excessive sweating, excessive thirst, excessive urination, flushing, intolerance to cold, intolerance to heat, u nexplained weight gain, unexplained weight loss, others Psychiatric: denies: anxiety, bipolar disorder, depression, hopeless, panic disorder, schizophrenia, sleepless, suicidal, others All Other Systems: Reviewed and Negative Physical Exam General Appearance: Normal HEENT: Normal ENT Inspection, Pharynx Normal, TMs Normal, Other (no tongue laceration noted) Neck: Full Range of Motion, Non-Tender, Normal, Normal Inspection Respiratory: Chest Non-Tender, Lungs Clear, No Accessory Muscle Use, No Respiratory Distress, Normal Breath Sounds Cardiovascular: No Edema, No JVD, No Murmur, No Gallop, Normal Peripheral Pulses, Regular Rate/Rhythm Breast Exam: Deferred Gastrointestinal: No Organomegaly, Non Tender, No Pulsatile Mass, Normal Bowel Sounds, Soft Genitalia: Deferred Pelvic: Deferred Rectal: Deferred Extremities: No calf tenderness, Normal capillary refill, Normal inspection, Normal range of motion, Non-tender, No pedal edema Musculoskeletal : Apperance: Normal Neurologic: Alert, saw feeder II-XII nml as Tested, No Motor Deficits, Normal Affect, Normal Mood, No Sensory Deficits Cerebellar Function: Normal Reflexes: Normal Skin: Dry, Normal Color, Warm Lymphatic: No Adenopathy Was a procedure done? Was a procedure done?: No Differential Diagnosis (SZ) Seizure: N/A CVA: Other General Weakness: Anemia, CVA, Dehydration, Dysrhythmia, Electrolyte imbalance, Hypoglycemia, Hypotension, Hypovolemia, Myocardial infarction Headache: N/A X-Ray, Labs, Meds, VS Vital Signs Date Time Temp Pulse Resp B/P (MAP) Pulse Ox O2 Delivery O2 Flow Rate FiO2 01/17/25 06:20 59 01/17/25 05:25 57 01/17/25 05:25 97.9 56 20 102/60 (74) 98 97.9 Lab Test 01/17/25 06:47 01/17/25 05:52 Range/Units Troponin I High Sensitivity Pending 4 </=54 ng/L White Blood Count 10.5 4.4-10.8 10^3/uL Red Blood Count 5.49 4.5-5.90 10^6/uL Hemoglobin 15.3 13.5-17.5 g/dL Hematocrit 45.7 41.0-53.0 % Mean Corpuscular Volume 83.2 80.0-100.0 fL Mean Corpuscular Hemoglobin 28.0 28.0-32.0 pg Mean Corpuscular Hemoglobin Concent 33.6 32.0-36.0 g/dL Red Cell Distribution Width 15.2 H 11.8-14.3 % Platelet Count 223 140-450 10^3/uL Mean Platelet Volume 8.2 6.9-10.8 fL Neutrophils (%) (Auto) 61.4 37.0-80.0 % Lymphocytes (%) (Auto) 29.0 10.0-50.0 % Monocytes (%) (Auto) 8.3 0.0-12.0 % Eosinophils (%) (Auto) 1.1 0.0-7.0 % Basophils (%) (Auto) 0.2 0.0-2.0 % Neutrophils # (Auto) 6.4 1.6-8.6 10 ^3/uL Lymphocytes # (Auto) 3.0 0.4-5.4 10 ^3/uL Monocytes # (Auto) 0.9 0-1.3 10 ^3/uL Eosinophils # (Auto) 0.1 0-0.8 10 ^3/uL Basophils # (Auto) 0 0-0.2 10 ^3/uL Nucleated Red Blood Cells 0.1 % Sodium Level 143 136-145 mmol/L Potassium Level 4.5 3.5-5.1 mmol/L Chloride Level 105 98-107 mmol/L Carbon Dioxide Level 26 20-31 mmol/L Anion Gap 12 5-15 Blood Urea Nitrogen 19 9-23 mg/dL Creatinine 1.38 H 0.700-1.30 mg/dL Glomerular Filtration Rate Calc 66 >90 mL/min BUN/Creatinine Ratio 13.8 10.0-20.0 Serum Glucose 111 H 74-106 mg/dL Calcium Level 9.1 8.7-10.4 mg/dL Total Bilirubin 0.4 0.2-1.0 mg/dL Aspartate Amino Transferase (AST) 20 <34 U/L Alanine Aminotransferase (ALT) 50 H 7-40 U/L Alkaline Phosphatase 93 46-116 U/L B-Type Natriuretic Peptide 12.90 0-100 pg/mL Total Protein 6.7 5.7-8.2 g/dL Albumin 4.5 3.2-4.8 g/dL Current Medications Medications (Trade) Dose Ordered Sig/Ti Route Start Time Stop Time Status Last Admin Sodium Chloride 1,000 ml @ 1,000 mls/hr Q1H ONCE IV 01/17/25 05:45 01/17/25 06:44 DC 01/17/25 05:45 Acetaminophen/ Hydrocodone Bitart ([place] 5/325MG Tab) 1 tab ONCE ONCE PO 01/17/25 06:45 01/17/25 06:46 DC 01/17/25 06:55 [place] [id number] Ph: [phone] DIAGNOSTIC IMAGING Diagnostic Imaging Report : [id number] Signed PATIENT: NII PRETTY ACCT: [id number] UNIT: [id number] : 1985 LOC: ER ROOM / BED: / AGE / SEX: 39 / M ADM STATUS: REG ER SERVICE [id number] ORDERING PHYSICIAN: EVELIN RIZZO MD PROCEDURE(s): CXR1 - CHEST XRAY 1 VIEW REASON: Syncope ORDER NUMBER(s): [id number], ACCESSION NUMBER(s): [id number] CHEST RADIOGRAPH Indication: Syncope Technique: Single frontal view of the chest was obtained COMPARISON: XY CHEST PORTABLE on DOS: 12/01/24, CHEST PORTABLE on DOS: 02/26/21 FINDINGS: Lines and Tubes: None Lungs: Clear Pleura: No effusion. No pneumothorax. Cardiomediastinal contours: Unremarkable Bones: Unremarkable IMPRESSION: 1. No acute disease. ATED BY: AMANUEL TALLEY MD DICTATED DATE/TIME: 01/17/25612 SIGNED BY: AMANUEL TALLEY MD SIGNED DATE/TIME: 01/17/25612 CC: Time of 1ST Reevaluation: 06:40 Reevaluation 1ST: Unchanged Patient Education/Counseling: Diagnosis, Treatment, Prognosis Family Education/Counseling: No Family Present Comments pt reportedly was found down in bathroom. he was hypotensive on presentation. this followed a sine stimulator placement in [place]. pt remained relatively hypotensive but responded to ivf bolus. he continues to feel very weak. pt will be admitted for syncope Additional Information The following tests were ordered, and results were reviewed by me: BNP, TROP-x3, CMP, CBC, XY CHEST Additional Information was gathered from interviewing the following independent historians: EMS I reviewed and agreed with the following test results read by other providers: XY CHEST I discussed treatment and results with medical personnel and: patient Comprehensive systems review obtained and negative except for what is stated in the HPI. Departure 1 Departure Time of Disposition: 07:00 Impression: Primary Impression: Syncope Disposition: ADMITTED INPATIENT Admit to: Tele Condition: Stable Discharged With: Self Critical Care Note Critical Care Time?: Yes (35 min-critical care time only) Critical care comment: Due to concerns for patients condition deteriorating, the care required my highest level of attention and readiness to intervene. I assessed the patient, reviewed the medical records, ordered the appropriate tests and treatments, then reassessed for results and responsiveness. I communicated with medical personnel and consultants and formulated a plan of care. Total critical care time excludes any procedures Stability Stability form required: No I personally scribed for ENID MATSON MD ([email or web address]) on 01/17/25 at 06:20. Electronically submitted by Judy Chua ([email or web address]). I personally scribed for ENID MATSON MD ([email or web address]) on 01/17/25 at 06:35. Electronically submitted by Judy Chua ([email or web address]). I personally scribed for ENID MATSON MD ([email or web address]) on 01/17/25 at 06:39. Electronically submitted by Judy Chua ([email or web address]). ENID MATSON MD Jan 17, 2025 06:20
--- NOTE | 2025-01-17 06:21 | ECG ---
[facility] Test Date: 2025-01-17 Test Time: 06:20:25 Pat Name: NII PRETTY Department: ED Room: 0292T Gender: M Site Administrator: ALICIA : 1985 Requested By: EVELIN RIZZO Order Number: [id number] Reading MD: Brennon Brown Measurements Intervals [place] Rate: 59 P: 64 MT: 147 QRS: 24 QRSD: 98 T: 16 QT: 390 QTc: 387 Interpretive Statements Sinus rhythm Low voltage, precordial leads Electronically Signed On 01-19-2025 22:45:17 PDT by Brennon Brown Please click the below link to view image of tracing.
[2025-01-17 06:36] LABS: Alanine Aminotransferase 50 U/L (7-40); Glucose 111 mg/dL (74-106)
[2025-01-17] MEDS: HYDROcodone-ACET 5/325MG TAB PO ONE (06:55)
[2025-01-17] MEDS ORDERED: ACETAMINOPHEN 325 MG TAB PO PRN (12:15)
--- NOTE | 2025-01-17 12:20 | DVHHP2 ---
History of Present Illness History of Present Illness 39 year old male presents to the ED via EMS with a chief complaint of syncope onset today (01/17/25). Patient states he had a back stimulator procedure at [place], [place] on 01/15/25, was discharged home. This morning, patient woke up, went to the bathroom, was found on the floor, unresponsive. Upon EMS arrival, patient experiencing 2 witnessed syncope episodes, witnessed, had positive ortho stats. Denies chest pain, shortness of breath, nausea, vomiting, diarrhea. No other symptoms or modifying factors present at this time. Review of Systems Allergies: Coded Allergies: NO KNOWN ALLERGIES (Unverified , 09/13/13) Exam Vital Signs Vital Signs Date Time Temp Pulse Resp B/P (MAP) Pulse Ox O2 Delivery O2 Flow Rate FiO2 01/17/25 08:00 98.6 77 12 118/75 (89) 95 98.6 01/17/25 07:20 Room Air* 0 21 Exam GEN: Healthy appearing, well-developed, NAD. HEENT: NC/AT; MMM. CV: RRR, no m/r/g. LUNGS: CTAB, no w/r/c. ABD: Soft, NT/ND, NBS, no masses or organomegaly. EXT: skin Warm, well perfused. no rashes. No clubbing, cyanosis, or edema. NEURO: Ambulating with no limitations. No focal deficits. Patient has spinal stimulator recently placed is intact insertion site cause some spotting dark red blood Labs/Xrays Labs Test 01/17/25 06:47 01/17/25 05:52 Range/Units Troponin I High Sensitivity 3 L </=54 ng/L White Blood Count 10.5 4.4-10.8 10^3/uL Red Blood Count 5.49 4.5-5.90 10^6/uL Hemoglobin 15.3 13.5-17.5 g/dL Hematocrit 45.7 41.0-53.0 % Mean Corpuscular Volume 83.2 80.0-100.0 fL Mean Corpuscular Hemoglobin 28.0 28.0-32.0 pg Mean Corpuscular Hemoglobin Concent 33.6 32.0-36.0 g/dL Red Cell Distribution Width 15.2 H 11.8-14.3 % Platelet Count 223 140-450 10^3/uL Mean Platelet Volume 8.2 6.9-10.8 fL Neutrophils (%) (Auto) 61.4 37.0-80.0 % Lymphocytes (%) (Auto) 29.0 10.0-50.0 % Monocytes (%) (Auto) 8.3 0.0-12.0 % Eosinophils (%) (Auto) 1.1 0.0-7.0 % Basophils (%) (Auto) 0.2 0.0-2.0 % Neutrophils # (Auto) 6.4 1.6-8.6 10 ^3/uL Lymphocytes # (Auto) 3.0 0.4-5.4 10 ^3/uL Monocytes # (Auto) 0.9 0-1.3 10 ^3/uL Eosinophils # (Auto) 0.1 0-0.8 10 ^3/uL Basophils # (Auto) 0 0-0.2 10 ^3/uL Nucleated Red Blood Cells 0.1 % Sodium Level 143 136-145 mmol/L Potassium Level 4.5 3.5-5.1 mmol/L Chloride Level 105 98-107 mmol/L Carbon Dioxide Level 26 20-31 mmol/L Anion Gap 12 5-15 Blood Urea Nitrogen 19 9-23 mg/dL Creatinine 1.38 H 0.700-1.30 mg/dL Glomerular Filtration Rate Calc 66 >90 mL/min BUN/Creatinine Ratio 13.8 10.0-20.0 Serum Glucose 111 H 74-106 mg/dL Calcium Level 9.1 8.7-10.4 mg/dL Total Bilirubin 0.4 0.2-1.0 mg/dL Aspartate Amino Transferase (AST) 20 <34 U/L Alanine Aminotransferase (ALT) 50 H 7-40 U/L Alkaline Phosphatase 93 46-116 U/L B-Type Natriuretic Peptide 12.90 0-100 pg/mL Total Protein 6.7 5.7-8.2 g/dL Albumin 4.5 3.2-4.8 g/dL Assessment/Plan Assessment/Plan Syncope Chronic back pain due to traumatic back injury status post spinal stimulator 01/15/2025 CHRISTI due to VMN - blood pressure monitoring - telemetry - IV fluids - p.o. and IV p.r.n. pain control - internal spinal stimulator - keeps switched off - orthostatics a.m. Regular diet No GI prophylaxis tolerating p.o. DVT prophylaxis-Lovenox subQ daily Tele Full code Plan discussed with: Patient Date of Service: Jan 17, 2025 Billing Provider: BEV AGUIRRE MD Common Visit Codes: 47305-[id number] INP/OBS CARE (HIGH) Secondary Visit Codes: 14280-NCAELIGZ CARE PLAN 30 MINUTES BEV AGUIRRE MD Jan 17, 2025 12:20
[2025-01-17] MEDS: SODIUM CHLORIDE 0.9% 1,000 ML IV SCH (14:34)
[2025-01-17 18:52] VITALS: BP 121/69; PULSE 63; RESP 17; TEMP 97.6; O2SAT 97
[2025-01-17 20:00] VITALS: PULSE 69; RESP 17; O2SAT 97
[2025-01-17] MEDS: MORPHINE SULFATE INJ 2 MG/ml SYRG IV PRN (20:34)
[2025-01-17 21:00] VITALS: BP 121/69; PULSE 65; RESP 15; TEMP 97.6; O2SAT 96
[2025-01-18] VITALS (9 sets, daily range): BP systolic 107–145; BP diastolic 58–96; PULSE 59–79; RESP 14–20; TEMP 97.6–98.2; O2SAT 95–99
[2025-01-18 10:11] LABS: Basophils # (auto) 0 10 ^3/uL (0-0.2); Basophils % (auto) 0.4 % (0.0-2.0); Eosinophils # (auto) 0.1 10 ^3/uL (0-0.8); Eosinophils % (auto) 1.3 % (0.0-7.0); Hematocrit 43.7 % (41.0-53.0); Hemoglobin 14.6 g/dL (13.5-17.5); Lymphocytes # (auto) 1.5 10 ^3/uL (0.4-5.4); Lymphocytes % (auto) 22.2 % (10.0-50.0); Mean Corpuscular Hemoglobin 27.9 pg (28.0-32.0); Mean Corpuscular Hgb Conc. 33.5 g/dL (32.0-36.0); Mean Corpuscular Volume 83.4 fL (80.0-100.0); Monocytes # (auto) 0.6 10 ^3/uL (0-1.3); Monocytes % (auto) 8.2 % (0.0-12.0); Neutrophils # (auto) 4.6 10 ^3/uL (1.6-8.6); Neutrophils % (auto) 67.9 % (37.0-80.0); Nucleated Red Blood Cells % 0.1 %; Platelet Count (auto) 201 10^3/uL (140-450); Red Blood Cells 5.24 10^6/uL (4.5-5.90); Red Cell Distribution Width 14.8 % (11.8-14.3); White Blood Cell 6.8 10^3/uL (4.4-10.8)
[2025-01-18 10:29] LABS: Alanine Aminotransferase 31 U/L (7-40); Albumin 4.1 g/dL (3.2-4.8); Alkaline Phosphatase 87 U/L (46-116); Anion Gap 8 (5-15); Aspartate Aminotransferase 18 U/L (<34); BUN/Creatinine Ratio 11.4 (10.0-20.0); Blood Urea Nitrogen 15 mg/dL (9-23); Calcium 9.3 mg/dL (8.7-10.4); Carbon Dioxide 29 mmol/L (20-31); Potassium 3.8 mmol/L (3.5-5.1); Total Protein 6.4 g/dL (5.7-8.2)
[2025-01-18 10:30] LABS: Bilirubin, Total 0.5 mg/dL (0.2-1.0); Chloride 109 mmol/L (98-107); Glucose 128 mg/dL (74-106); Sodium 146 mmol/L (136-145)
[2025-01-18] MEDS: ENOXAPARIN SOD 40 MG/0.4 ML SYRINGE SC SCH (10:37)
--- NOTE | 2025-01-18 13:42 | DVHPN2 ---
Objective Vitals Vital Signs Date Time Temp Pulse Resp B/P (MAP) Pulse Ox O2 Delivery O2 Flow Rate FiO2 01/18/25 13:19 97.8 59 17 131/93 (106) 97 97.8 01/17/25 20:00 Room Air* 0 21 Intake/Output Intake and Output 01/18/25 07:00 Intake Total 680 ml Output Total 400 ml Balance 280 ml Intake Oral 500 ml IV Total 180 ml Output Urine Total 400 ml Medications Current Medications Medications Dose Ordered Sig/Ti Route Start Time Stop Time Status Last Admin Dose Admin Sodium Chloride 1,000 ml @ 60 mls/hr [id number] IV 01/17/25 12:15 01/17/25 14:34 60 MLS/HR Acetaminophen/ Hydrocodone Bitart 1 tab Q4HP PRN PO 01/17/25 12:15 Enoxaparin Sodium 40 mg DAILY SC 01/18/25 10:00 01/18/25 10:37 40 MG Acetaminophen 650 mg Q6HP PRN PO 01/17/25 12:15 Morphine Sulfate 2 mg Q4HPRN PRN IV 01/17/25 12:15 01/18/25 05:54 2 MG Laboratory Results Laboratory Tests 01/18/25 09:50 Chemistry Test 01/18/25 09:50 Albumin 4.1 g/dL (3.2-4.8) Calcium Level 9.3 mg/dL (8.7-10.4) Total Protein 6.4 g/dL (5.7-8.2) LFT Test 01/18/25 09:50 Alanine Aminotransferase (ALT) 31 U/L (7-40) Alkaline Phosphatase 87 U/L (46-116) Aspartate Amino Transferase (AST) 18 U/L (<34) Total Bilirubin 0.5 mg/dL (0.2-1.0) Assessment/Plan My Orders Orders - ADEN BRISENO DO Procedure Category Date Status Time * Neurology Consult CONS 01/18/25 Transmitted 13:39 * Cardiology Consult CONS 01/18/25 Transmitted 13:39 Echo 2d Mode Cardiac US 01/18/25 Verified DOP 13:41 ADEN BRISENO DO Jan 18, 2025 13:42
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
[2025-01-18 17:36] LABS: Opiate Scree,Urine Neg (NEGATIVE)
[2025-01-18 17:43] LABS: Amphetamine Screen, Urine Neg (NEGATIVE); Barbiturate Scree,Urine Neg (NEGATIVE); Benzodiazephine Screen, Urine Neg (NEGATIVE); Cannabinoid Screen, Urine Neg (NEGATIVE); Cocaine Screen, Urine Neg (NEGATIVE); Phencyclidine Screen, Urine Neg (NEGATIVE)
[2025-01-18] MEDS: MORPHINE SULFATE 4 MG/ML SYR/VIAL IV PRN (17:49)
--- NOTE | 2025-01-18 18:58 | DVH ---
Procedure: CT HEAD WITHOUT CONTRAST Study Date and Requested Time: 01/18/2025 06:24 PM History: Syncope and collapse Comparison: None Dose: CTDI: 58.33 mGy DLP: 1051.29 mGycm Technique: Multiplanar images obtained through the brain without intravenous contrast. Findings: Normal brain volume and formation. Mild chronic small vessel ischemic changes. No hemorrhages, masses, mass effect, midline shift, herniation or cytotoxic edema following a large v ascular territory. No intra-axial or extra-axial fluid collections. No evidence of hydrocephalus. The basal cisterns are patent. The pituitary gland, sella and parasellar regions are unremarkable. The cerebellar tonsils are in nor mal position. The cerebellum is unremarkable. The orbits and globes are unremarkable. Pansinus Polypoid mucoperiosteal thickening. The mastoids are clear. There are no worrisome calvarial lesions. Mild scalp and facial soft tissue edema. Impression: No evidence of acute intracranial abnormality. Pansinus Polypoid mucoperiosteal thickening.
--- NOTE | 2025-01-18 19:39 | DVH ---
Carotid Duplex Date: 01/18/2025 04:34 PM Clinical History: Syncope Comparison: None Technique: Duplex Doppler evaluation of the extracranial carotid and vertebral arteries including col or Doppler and spectral/pulsed waveform analysis was performed. Findings: RIGHT SIDE: The peak systolic velocities are 82 cm/s in the distal CCA and 53 cm/s in the proximal ICA.The ICA/CC A ratio is less than 1. The external carotid artery is patent with peak systolic velocity of 103 cm/s proximally. There is appropriate antegrade flow in the right vertebral artery. LEFT SIDE: The peak systolic velocities are 103 cm/s in the distal CCA and 85 cm/s in the proximal ICA.. The ICA /CCA ratio is less than 1. The external carotid artery is patent with peak systolic velocity of 66 cm/s proximally. There is appropriate antegrade flow in the left vertebral artery. IMPRESSION: 1. No hemodynamically significant stenosis noted in the right carotid system. 2. No hemodynamically significant stenosis noted in the left carotid system. 3. Reference: Radiology 2003; 229:340-346
[2025-01-18] MEDS: HYDROcodone-ACET 5/325MG TAB PO PRN (20:14)
[2025-01-19] VITALS (8 sets, daily range): BP systolic 8–150; BP diastolic 67–98; PULSE 55–78; RESP 17–20; TEMP 97.8–98.6; O2SAT 94–97
[2025-01-19] MEDS ORDERED: MORPHINE SULFATE 4 MG/ML SYR/VIAL IV PRN (01:00)
[2025-01-19] MEDS ORDERED: NITROGLYCERIN 0.4 MG SL TAB SL PRN (01:00)
--- NOTE | 2025-01-19 07:26 | ECG ---
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
[2025-01-19] MEDS: DOCUSATE SOD 100 MG CAP PO PRN (17:55)
--- NOTE | 2025-01-19 18:55 | DVHSR ---
APPROVED REPORT EXAM: Two-dimensional and M-mode echocardiogram with Doppler and color Doppler. Blood Pressure: 131/93 mmHg INDICATION Syncope RISK FACTORS Height: 71, Weight: 224 DIMENSIONS LVDd5.1 (3.8-5.7cm)LA (2D)4.2 (1.9-4.0cm)Aortic Root3.9 (2.0-3.7cm) LVDs3.6 (2.5-4.0cm)LA (MM) (1.9-4.0cm)Aortic Cusp Exc2.0 (1.5-2.0cm) EF (%) 55.0 (55-70%)Rt. Atrium4.0 (1.9-4.0cm)Asc. Aorta cm Mitral Valve MitralMitral Stenosis E wave0.81m/sMV Mean GR.mmHg A wave0.60m/sMV Peak GR.mmHg E/A ratio1.42D MVAcm2 DECEL [id number] 1/2 Xgnf28yl IVRTmsDop MVA2.82cm2 Aortic Valve Aortic ValveAortic Stenosis V10.97m/Ava Mean GR.3mmHg V21.35m/Ava Peak GR.7mmHg LVOT Diameter2.4 (1.8-2.4cm)Doppler AVA3.25cm2 Pulmonic Valve V20.93m/s Conclusion Sinus rhythm. Aortic root enlargement. Left atrial enlargement. Valves are normal. EF of 50%. Normal RV function. Dopplers unremarkable. No pericardial effusion masses or vegetations.
[2025-01-20] VITALS (7 sets, daily range): BP systolic 8–141; BP diastolic 61–97; PULSE 57–68; RESP 15–20; TEMP 36.7; O2SAT 95–97
--- NOTE | 2025-01-20 14:10 | DVHDS2 ---
Discharge Summary Date of Admission Jan 17, 2025 at 12:01 Date of Discharge: Jan 20, 2025 Labs/Diagnostic Data: Laboratory Results Test 01/19/25 00:59 01/18/25 16:00 01/18/25 09:50 01/17/25 05:52 Troponin I High Sensitivity 6 ng/L (</=54) Urine Opiates Screen Neg (NEGATIVE) Urine Fentanyl Screen Neg (NEGATIVE) Urine Barbiturates Screen Neg (NEGATIVE) Urine Phencyclidine Screen Neg (NEGATIVE) Urine Amphetamines Screen Neg (NEGATIVE) Urine Benzodiazepines Screen Neg (NEGATIVE) Urine Cocaine Screen Neg (NEGATIVE) Urine Cannabinoids Screen Neg (NEGATIVE) White Blood Count 6.8 10^3/uL (4.4-10.8) Red Blood Count 5.24 10^6/uL (4.5-5.90) Hemoglobin 14.6 g/dL (13.5-17.5) Hematocrit 43.7 % (41.0-53.0) Mean Corpuscular Volume 83.4 fL (80.0-100.0) Mean Corpuscular Hemoglobin 27.9 pg (28.0-32.0) Mean Corpuscular Hemoglobin Concent 33.5 g/dL (32.0-36.0) Red Cell Distribution Width 14.8 % (11.8-14.3) Platelet Count 201 10^3/uL (140-450) Mean Platelet Volume 8.3 fL (6.9-10.8) Neutrophils (%) (Auto) 67.9 % (37.0-80.0) Lymphocytes (%) (Auto) 22.2 % (10.0-50.0) Monocytes (%) (Auto) 8.2 % (0.0-12.0) Eosinophils (%) (Auto) 1.3 % (0.0-7.0) Basophils (%) (Auto) 0.4 % (0.0-2.0) Neutrophils # (Auto) 4.6 10 ^3/uL (1.6-8.6) Lymphocytes # (Auto) 1.5 10 ^3/uL (0.4-5.4) Monocytes # (Auto) 0.6 10 ^3/uL (0-1.3) Eosinophils # (Auto) 0.1 10 ^3/uL (0-0.8) Basophils # (Auto) 0 10 ^3/uL (0-0.2) Nucleated Red Blood Cells 0.1 % Sodium Level 146 mmol/L (136-145) Potassium Level 3.8 mmol/L (3.5-5.1) Chloride Level 109 mmol/L (98-107) Carbon Dioxide Level 29 mmol/L (20-31) Anion Gap 8 (5-15) Blood Urea Nitrogen 15 mg/dL (9-23) Creatinine 1.32 mg/dL (0.700-1.30) Glomerular Filtration Rate Calc 69 mL/min (>90) BUN/Creatinine Ratio 11.4 (10.0-20.0) Serum Glucose 128 mg/dL (74-106) Calcium Level 9.3 mg/dL (8.7-10.4) Total Bilirubin 0.5 mg/dL (0.2-1.0) Aspartate Amino Transferase (AST) 18 U/L (<34) Alanine Aminotransferase (ALT) 31 U/L (7-40) Alkaline Phosphatase 87 U/L (46-116) Total Protein 6.4 g/dL (5.7-8.2) Albumin 4.1 g/dL (3.2-4.8) B-Type Natriuretic Peptide 12.90 pg/mL (0-100) Other Laboratory Tests 01/18/25 09:50 Discharge Disposition: Home Discharge Instruct/Medications Diet: Cardiac 2g Na,low cholest Activity: No Restrictions, As Tolerated Discharge Statement: "Patient was advised to return to the ER or call 911 if any headaches, dizziness, shortness of breath, chest pain, abdominal pain, bleeding, fevers, or worsening of medical condition. Patient was counseled about treatment plan, medications, possible side effects, patientverbalized understanding. All questions were answered to the best of my ability. This discharge took greater then 30 minutes in planning, reviewing documentation, counseling the patient, and discussing with other team members." ASSESSMENT ASSESSMENT Assessment Date of Service: Jan 20, 2025 Billing Provider: ADEN BRISENO DO Common Visit Codes: 58833-CZH/OBS DISCH DAY >30min ADEN BRISENO DO Jan 20, 2025 14:10
== END 2025-01-20 16:10 | disposition home or self-care (01) | DRG 312 ==
LOC: EDBD 05:20 → ER 05:20 → OVERFLOW 12:01 → TELE-WESTW 17:56
PROVIDERS: ADMIT Internal Medicine; ATTEND Internal Medicine
DX: R55 Syncope and collapse (principal); N17.0 Acute kidney failure with tubular necrosis; G89.29 Other chronic pain; E66.9 Obesity, unspecified; F17.210 Nicotine dependence, cigarettes, uncomplicated; Z68.29 Body mass index [BMI] 29.0-29.9, adult; Z82.49 Family history of ischemic heart disease and other diseases of the circulatory system; Z79.899 Other long term (current) drug therapy
CPT/HCPCS: 36415; 70450; 71045; 80053; 80307; 83880; 84484; 85025; 93005; 93306; 93886; 96360; 99291; G0378

== ENCOUNTER 2025-04-20 07:00 | Outpatient (CLI) | payer OTHER ==
[~2025-04-20] VITALS: Ht 177.8 cm; Wt 95.3 kg
[2025-04-20] MEDS: REGADENOSON 0.4 MG/5 ML SYRG IV ONE ×2 (08:44→08:49)
--- NOTE | 2025-04-21 11:53 | DVHSR ---
APPROVED REPORT Exam: Nuclear Stress Test Indication: Cardiac clearance BMI: 0 Medical History Medical History: Cardiac arrest Allergies: No known drug allergies Stress Test Details Stress Test: Pharmacologic stress testing performed using 0.4 mg of regadenoson per 5 mL given IV ov er 10 seconds. HR Resting HR: 68 bpmMax Heart Rate (APMHR): 179.796788 bpm Max HR Achieved: 97 bpmTarget HR (85% APMHR): 152.792083 bpm % of APMHR: 54.19 Recovery HR: 90 bpm BP Resting BP: 129/72 mmHg Recovery BP: 123/64 mmHg ECG Resting ECG: Sinus Rhythm Clinical Reason for Termination: Completed protocol Nurse Comments Recieved pt. from [facility]. A/Ox4 on RA. Connected to attendant self service store, VS stable. PIV flushes well. Reviewed POC. Pt. verbalized understanding of procedure including risks and side ef fects, agrees for stress testing. Lexiscan stress test performed per protocol. [employer] administered Cardiolite. Pt. tolerated well . Pt. stable, no change on exam. VS returned to baseline. Transferred to [facility] via wheelchair w/ te ch. Stress ECG Conclusion lvef 61% pvcs noted on ecg no severe ischemia noted NM EXAM: Myocardial Perfusion REST/STRESS Imaging Protocol: Rest Tc-99m/Stress Tc-99m 1 day Resting Data Rest SPECT myocardial perfusion imaging was performed in supine position 45 minutes following the int ravenous injection of 10.5 mCi of Tc-99m Sestamibi. Time of rest injection: 07:30 Date: 04/20/2025 Time of rest imagin:15 Date: 04/20/2025 Administration Route: IV Administration Site: Right Arm Pharmacologic Stress Pharmacologic stress test was performed by injecting Regadenoson 0.4 mg IV push followed by the intra venous injection of 32.9 mCi of Tc-99m Sestamibi. Time of stress injection: 08:45 Date: 04/20/2025 Time of stress imagin:45 Date: 04/20/2025 Administration Route: IV Administration Site: Right Arm The images were gated to evaluate regional wall motion and calculate left ventricular ejection fracti on. Stress only was performed in the Supine position. Comments Patient dealt with shaky legs during scan which contributed to motion on the rest and stress acquisti on. Patient scanned twice to improve quality of stress data sets, however no significant improvement noticed. Motion correction used for stress acquistion. Nuclear Conclusion Nuclear Findings: negative for ischemia lvef 61% pvcs noted on ecg no severe ischemia noted
== END 2025-04-20 17:00 | disposition home or self-care (01) ==
LOC: XYW 07:00
PROVIDERS: ATTEND Internal Medicine
DX: Z01.810 Encounter for preprocedural cardiovascular examination (principal); M50.90 Cervical disc disorder, unspecified, unspecified cervical region; Z86.74 Personal history of sudden cardiac arrest
CPT/HCPCS: 78452; 93017; A9500; J2785